=== PATIENT | male | born 2000 | race Hispanic/Latino ===

== ENCOUNTER 2022-01-21 01:57 | Emergency (ER) | payer OTHER ==
[~2022-01-21] VITALS: Ht 165.1 cm; Wt 86.2 kg
[2022-01-21 03:04] LABS: STREPTOCOCCUS GRP A ANTIGEN NEGATIVE (NEGATIVE)
[2022-01-21] MEDS ORDERED: XOFLUZA80 MG PO (03:04)
[2022-01-21 03:10] LABS: INFLUENZAE A&B ANTIGEN (RAPID) NEGATIVE (NEGATIVE)
== END 2022-01-21 03:17 | disposition home or self-care (01) ==
LOC: ER 02:01
DX: R05.9 Cough, unspecified (principal); J06.9 Acute upper respiratory infection, unspecified; R51.9 Headache, unspecified; R42 Dizziness and giddiness; E78.5 Hyperlipidemia, unspecified; J45.909 Unspecified asthma, uncomplicated; Z20.822 Contact with and (suspected) exposure to COVID-19
CPT/HCPCS: 0223U; 36415; 83518; 87070; 87400; 99282